=== PATIENT | male | born 1985 | race Caucasian/White ===

== ENCOUNTER 2017-02-09 20:20 | Emergency (ER) | payer SELFPAY ==
[~2017-02-09] VITALS: Ht 182.9 cm; Wt 92.0 kg
[~2017-02-09 20:20] MED LIST: POLY10O OU; VIST25CA PO
[2017-02-09 20:21] VITALS: BP 121/81; PULSE 89; RESP 15; TEMP 98.3; O2SAT 97
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
[2017-02-09] MEDS ORDERED: AZITHROMYCIN PWD FOR SUSP 1 GM PACKET PO ONE (20:45)
[2017-02-09] MEDS ORDERED: cefTRIAXone 250 MG VIAL IM ONE (20:45)
[2017-02-09 20:56] LABS: BLOOD, URINE NEG (NEG); COMMENT (UR) CULTURE INDICATED; CULTURE IF INDICATED CULTURE INDICATED; GLUCOSE,URINE NEG (NEG); KETONE, URINE NEG (NEG); NITRITE,URINE NEG (NEG); URINE COLOR YELLOW (YELLW/STRAW)
[2017-02-09 21:17] VITALS: BP 126/77
[2017-02-10 00:23] LABS: CHLAMYDIA PCR NOT DETECTED (NOT DETECT); NEISSERIA PCR DETECTED (NOT DETECT)
== END 2017-02-09 21:31 | disposition home or self-care (01) ==
LOC: NEPK 20:20
DX: A54.01 Gonococcal cystitis and urethritis, unspecified (principal); R36.9 Urethral discharge, unspecified
CPT/HCPCS: 81001; 87086; 87491; 87591; 99284; J0696